=== PATIENT | female | born 2000 ===

== ENCOUNTER 2021-11-15 11:07 | Emergency (ER) | payer OTHER ==
[~2021-11-15] VITALS: Ht 170.2 cm; Wt 72.7 kg
[2021-11-15] MEDS ORDERED: ACETAMINOPHEN 500 MG TABLET PO ONE (12:30)
[2021-11-15 14:53] VITALS: BP 122/70
== END 2021-11-15 14:58 | disposition home or self-care (01) ==
LOC: EMS 11:18
DX: S90.02XA Contusion of left ankle, initial encounter (principal); X58.XXXA Exposure to other specified factors, initial encounter; Y93.89 Activity, other specified; Y92.89 Other specified places as the place of occurrence of the external cause; Y99.0 Civilian activity done for income or pay
CPT/HCPCS: 99285; 73610-TC; Z7502; Z7610